=== PATIENT | female | born 1955 | race Caucasian/White ===

== ENCOUNTER → 2016-10-30 | Outpatient (CLI) | payer BC ==
--- NOTE | 2016-11-02 09:17 | MM ---
Reason for exam: screening (asymptomatic). Last mammogram was performed 6 years and 11 months ago. History: Patient is postmenopausal and had first child at age 37. Family history of premenopausal breast cancer in mother at age 37. Physical Findings: A clinical breast exam by your physician is recommended on an annual basis and results should be correlated with mammographic findings. MG 3D Screening Mammo W/Cad Bilateral CC and MLO view(s) were taken. Prior study comparison: November 18, 2009, bilateral digital screening mammogram. September 16, 2004, bilateral screening mammogram. The breast tissue is almost entirely fat. Benign calcifications. There is no discrete abnormality. No significant changes when compared with prior studies. ASSESSMENT: Benign, BI-RAD 2 RECOMMENDATION: Routine screening mammogram of both breasts in 1 year.
== END | disposition home or self-care (01) ==
LOC: RADMAMWWP 16:24
PROVIDERS: ATTEND Family Medicine
DX: Z12.31 Encounter for screening mammogram for malignant neoplasm of breast (principal)
CPT/HCPCS: 77063; G0202

== ENCOUNTER 2017-08-08 18:12 | Emergency (ER) | payer BC ==
[2017-08-08] MEDS ORDERED: MORPHINE SULFATE 2 MG/ML SYRINGE IVP STA (18:50)
[2017-08-08] MEDS ORDERED: SODIUM CHLORIDE 0.9% 500 ML IV STA (18:50)
[2017-08-08] MEDS ORDERED: ONDANSETRON 4 MG/2 ML VIAL IVP STA (18:51)
--- NOTE | 2017-08-08 18:56 | ED ---
Abdominal Pain HPI - General Chief Complaint: Abdominal Pain Stated Complaint: Constipated, not eating-cancer pt Time Seen by Provider: 08/08/17 18:32 Source: family Mode of arrival: wheelchair Limitations: no limitations - History of Present Illness Initial Comments: This is a 62-year-old female patient with a past medical history significant for diabetes mellitus type 2, morbid obesity, and recently diagnosed pancreatic cancer, pulmonary embolus, and left lower leg DVT. Patient was seen here on and admitted with pulmonary embolism, then transferred to [facility] for further evaluation when they discovered a pancreatic head mass and lesions all on her liver. Patient presents today for complaints of generalized abdominal pain and constipation. Patient states she has not had a good bowel movement for the last 5 days. States that she has not had any stool output at all for the last 3 days. She states that today she is feeling very nauseated. States that she has vomited 2-3 times. States she has vomited a couple of times throughout the last couple of days as well. She denies any hematemesis. Patient states that her abdominal pain is a full, pressure type feeling. Patient states she is diffusely tender over the abdomen. Patient denies any recent rash, fever, chills, shortness breath, chest pain, back pain, numbness, tingling, dizziness, weakness, hematuria, dysuria, urinary urgency, urinary frequency, headache, visual changes, or any other complaints. Patient denies any use of opiate pain medications. States that she has not had any significant abdominal pain related to the pancreatic cancer. - Related Data Home Medications Medication Instructions Recorded Confirmed Citalopram Hydrobromide [CeleXA] 20 mg PO DAILY 05/14/15 08/08/17 Insulin Lispro [humaLOG Kwikpen] See Protocol SQ AC-TID 07/12/17 08/08/17 Lisinopril [Zestril] 5 mg PO DAILY 07/12/17 08/08/17 Rosuvastatin [Crestor] 10 mg PO HS 07/13/17 08/08/17 Enoxaparin [Lovenox] 135 mg SQ BID 08/08/17 08/08/17 Insulin Glargine,Hum.rec.anlog 20 unit SQ HS 08/08/17 08/08/17 [Basaglar Kwikpen U-100] Ondansetron HCl [Zofran] 8 mg PO TID PRN 08/08/17 08/08/17 Polyethylene Glycol 3350 [Miralax] 17 gm PO DAILY PRN 08/08/17 08/08/17 Sennosides [Senokot] 8.6 mg PO DAILY PRN 08/08/17 08/08/17 Allergies Allergy/AdvReac Type Severity Reaction Status Date / Time No Known Allergies Allergy Verified 08/08/17 19:13 Review of Systems ROS Statement: Those systems with pertinent positive or pertinent negative responses have been documented in the HPI. ROS Other: All systems not noted in ROS Statement are negative. Past Medical History Past Medical History: Cancer, Diabetes Mellitus, Deep Vein Thrombosis (DVT), Hyperlipidemia, Hypertension, Pulmonary Embolus (PE) Additional Past Medical History / Comment(s): SLIGHT COUGH-JUST GETTING OVER COLD, pancreatic cancer History of Any Multi-Drug Resistant Organisms: None Reported Past Surgical History: Section, Cholecystectomy Additional Past Surgical History / Comment(s): 1991,JESUS 2009 Past Anesthesia/Blood Transfusion Reactions: No Reported Reaction Past Psychological History: Anxiety, Depression Smoking Status: Former smoker Past Alcohol Use History: None Reported Past Drug Use History: None Reported - Past Family History Mother Family Medical History: Cancer Additional Family Medical History / Comment(s): BREAST & LIVER- @ AGE 40 Father Family Medical History: Cancer Additional Family Medical History / Comment(s): COLON CA General Exam Limitations: no limitations General appearance: alert, in no apparent distress, other (Social well-developed , well-nourished, obese female patient in no acute distress. Vital signs upon presentation are temperature 97.7F, pulse 97, respirations 18, blood pressure 114/67, pulse ox 98% on room air.) Head exam: Present: atraumatic, normocephalic, normal inspection Eye exam: Present: normal appearance, PERRL, EOMI. Absent: scleral icterus, conjunctival injection, periorbital swelling ENT exam: Present: normal exam, normal oropharynx, mucous membranes moist Respiratory exam: Present: normal lung sounds bilaterally. Absent: respiratory distress, wheezes, rales, rhonchi, stridor Cardiovascular Exam: Present: regular rate, normal rhythm, normal heart sounds. Absent: systolic murmur, diastolic murmur, rubs, gallop, clicks GI/Abdominal exam: Present: soft, tenderness (Mild diffuse tenderness), normal bowel sounds. Absent: distended, guarding, rebound, rigid Neurological exam: Present: alert, oriented X3, CN II-XII intact Psychiatric exam: Present: normal affect, normal mood Skin exam: Present: warm, dry, intact, normal color. Absent: rash Course Vital Signs 08/08/17 08/08/17 18:26 21:10 Temperature 97.7 F Pulse Rate 97 84 Respiratory 18 16 Rate Blood Pressure 114/67 104/54 O2 Sat by Pulse 98 96 Oximetry Medical Decision Making - Medical Decision Making 62-year-old female patient recently diagnosed with pancreatic cancer with possible liver metastases presented to emergency department today for complaints of generalized abdominal pain and constipation. Physical exam did reveal some upper abdominal tenderness. KUB xray shows overall non-obstructive bowel gas pattern. Labs were reviewed and did show an elevated BUN and creatinine. Elevated AST at 135, ALT at 220, and an increased alk phos at 588. Patient's bilirubin also elevated from 1.3 on 07/13/17 to 2.7 today. Conjugated bilirubin is 0.4, unconjugated bilirubin is 0.9, and delta bilirubin is 1.4. Patient's lipase is also 899. Patient also appears to have a urinary tract infection which we will treat with Rocephin. There is concern for new obstruction patient will be transferred to [facility], Dr. Wadsworth is accepting. Patient's oncologist Dr. Dutton is at this facility and patient request to be transferred here. - Lab Data Result diagrams: 08/08/17 19:10 08/08/17 19:10 Lab Results 08/08/17 08/08/17 08/08/17 Range/Units 19:10 19:10 19:10 WBC 5.6 (3.8-10.6) k/uL RBC 5.20 (3.80-5.40) m/uL Hgb 14.9 (11.4-16.0) gm/dL Hct 45.1 (34.0-46.0) % MCV 86.7 (80.0-100.0) fL MCH 28.7 (25.0-35.0) pg MCHC 33.1 (31.0-37.0) g/dL RDW 14.4 (11.5-15.5) % Plt Count 205 (150-450) k/uL Neutrophils % 71 % Lymphocytes % 19 % Monocytes % 7 % Eosinophils % 1 % Basophils % 1 % Neutrophils # 4.0 (1.3-7.7) k/uL Lymphocytes # 1.1 (1.0-4.8) k/uL Monocytes # 0.4 (0-1.0) k/uL Eosinophils # 0.1 (0-0.7) k/uL Basophils # 0.0 (0-0.2) k/uL Sodium 135 L (137-145) mmol/L Potassium 4.2 (3.5-5.1) mmol/L Chloride 103 (98-107) mmol/L Carbon Dioxide 19 L (22-30) mmol/L Anion Gap 13 mmol/L BUN 18 H (7-17) mg/dL Creatinine 1.06 H (0.52-1.04) mg/dL Est GFR (MDRD) Af Amer >60 (>60 ml/min/1.73 sqM) Est GFR (MDRD) Non-Af 53 (>60 ml/min/1.73 sqM) Glucose 190 H (74-99) mg/dL Calcium 9.7 (8.4-10.2) mg/dL Total Bilirubin 2.6 H (0.2-1.3) mg/dL Conjugated Bilirubin (0.0-0.3) mg/dL Unconjugated Bilirubin (0.0-1.1) mg/dL Delta Bilirubin (0.0-0.2) mg/dL AST 135 H (14-36) U/L ALT 220 H (9-52) U/L Alkaline Phosphatase 588 H (38-126) U/L Total Creatine Kinase 38 (30-135) U/L CK-MB (CK-2) 1.9 (0.0-2.4) ng/mL CK-MB (CK-2) Rel Index 5.0 Troponin I 0.017 (0.000-0.034) ng/mL Total Protein 7.1 (6.3-8.2) g/dL Albumin 3.8 (3.5-5.0) g/dL Amylase 66 (30-110) U/L Lipase 899 H (23-300) U/L Urine Color Urine Appearance (Clear) Urine pH (5.0-8.0) Ur Specific [place] (1.001-1.035) Urine Protein (Negative) Urine Glucose (UA) (Negative) Urine Ketones (Negative) Urine Blood (Negative) Urine Nitrite (Negative) Urine Bilirubin (Negative) Urine Urobilinogen (<2.0) mg/dL Ur Leukocyte Esterase (Negative) Urine RBC (0-5) /hpf Urine WBC (0-5) /hpf Urine WBC Clumps (None) /hpf Ur Squamous Epith Cells (0-4) /hpf Urine Bacteria (None) /hpf Hyaline Casts (0-2) /lpf Urine Mucus (None) /hpf 08/08/17 08/08/17 Range/Units 19:10 20:42 WBC (3.8-10.6) k/uL RBC (3.80-5.40) m/uL Hgb (11.4-16.0) gm/dL Hct (34.0-46.0) % MCV (80.0-100.0) fL MCH (25.0-35.0) pg MCHC (31.0-37.0) g/dL RDW (11.5-15.5) % Plt Count (150-450) k/uL Neutrophils % % Lymphocytes % % Monocytes % % Eosinophils % % Basophils % % Neutrophils # (1.3-7.7) k/uL Lymphocytes # (1.0-4.8) k/uL Monocytes # (0-1.0) k/uL Eosinophils # (0-0.7) k/uL Basophils # (0-0.2) k/uL Sodium (137-145) mmol/L Potassium (3.5-5.1) mmol/L Chloride (98-107) mmol/L Carbon Dioxide (22-30) mmol/L Anion Gap mmol/L BUN (7-17) mg/dL Creatinine (0.52-1.04) mg/dL Est GFR (MDRD) Af Amer (>60 ml/min/1.73 sqM) Est GFR (MDRD) Non-Af (>60 ml/min/1.73 sqM) Glucose (74-99) mg/dL Calcium (8.4-10.2) mg/dL Total Bilirubin 2.7 H (0.2-1.3) mg/dL Conjugated Bilirubin 0.4 H (0.0-0.3) mg/dL Unconjugated Bilirubin 0.9 (0.0-1.1) mg/dL Delta Bilirubin 1.4 H (0.0-0.2) mg/dL AST (14-36) U/L ALT (9-52) U/L Alkaline Phosphatase (38-126) U/L Total Creatine Kinase (30-135) U/L CK-MB (CK-2) (0.0-2.4) ng/mL CK-MB (CK-2) Rel Index Troponin I (0.000-0.034) ng/mL Total Protein (6.3-8.2) g/dL Albumin (3.5-5.0) g/dL Amylase (30-110) U/L Lipase (23-300) U/L Urine Color Dark Brown Urine Appearance Cloudy H (Clear) Urine pH 5.5 (5.0-8.0) Ur Specific [place] 1.020 (1.001-1.035) Urine Protein 1+ H (Negative) Urine Glucose (UA) Negative (Negative) Urine Ketones 1+ H (Negative) Urine Blood Negative (Negative) Urine Nitrite Negative (Negative) Urine Bilirubin 1+ H (Negative) Urine Urobilinogen 12.0 (<2.0) mg/dL Ur Leukocyte Esterase Large H (Negative) Urine RBC 2 (0-5) /hpf Urine WBC 94 H (0-5) /hpf Urine WBC Clumps Occasional H (None) /hpf Ur Squamous Epith Cells 2 (0-4) /hpf Urine Bacteria Rare H (None) /hpf Hyaline Casts 16 H (0-2) /lpf Urine Mucus Occasional H (None) /hpf - Radiology Data Radiology results: report reviewed, image reviewed KUB x-ray of the abdomen shows normal bowel gas pattern, psoas margins are normal, no organomegaly is present, surgical clips from cholecystectomy are present, impression by Dr. Ricci is an unremarkable abdomen. Disposition Clinical Impression: Biliary obstruction, Abdominal pain Disposition: OTHER INSTITUTION NOT DEFINED Condition: Serious Referrals: Mateus Sol DO [Primary Care Provider] - 1-2 days - Out of Hospital Transfer - Req. Specs Out of Hospital Transfer - Requested Specifics: Other Emergency Center ( [facility])
[2017-08-08 19:28] LABS: Basophils % (A) 1 %; CHCM 34.8; Eosinophils # (A) 0.1 k/uL (0-0.7); Eosinophils % (A) 1 %; HCT 45.1 % (34.0-46.0); HDW 3.14; HGB 14.9 gm/dL (11.4-16.0); Luc # (Auto) 0.06; Luc % (Auto) 1; Lymphocytes # (A) 1.1 k/uL (1.0-4.8); Lymphocytes % (A) 19 %; MCH 28.7 pg (25.0-35.0); MCHC 33.1 g/dL (31.0-37.0); MCV 86.7 fL (80.0-100.0); Mean Platelet Volume 7.9; Monocytes # (A) 0.4 k/uL (0-1.0); Monocytes % (A) 7 %; Neutrophils % (A) 71 %; RDW 14.4 % (11.5-15.5); WBC 5.6 k/uL (3.8-10.6); WBC (Perox) 5.22
[2017-08-08 19:48] LABS: ALT 220 U/L (9-52); AST 135 U/L (14-36); Alkaline Phosphatase 588 U/L (38-126); Amylase 66 U/L (30-110); Anion Gap 13 mmol/L; Blood Urea Nitrogen 18 mg/dL (7-17); Calcium 9.7 mg/dL (8.4-10.2); Carbon Dioxide 19 mmol/L (22-30); Chloride 103 mmol/L (98-107); Glucose 190 mg/dL (74-99); Non-African American GFR(MDRD) 53 (>60 ml/min/1.73 sqM); Potassium 4.2 mmol/L (3.5-5.1); Sodium 135 mmol/L (137-145); Total Bilirubin 2.6 mg/dL (0.2-1.3); Total Protein 7.1 g/dL (6.3-8.2)
--- NOTE | 2017-08-08 20:43 | XR ---
EXAMINATION TYPE: XR KUB DATE OF EXAM: 08/08/2017 COMPARISON: 03/06/2010 INDICATION: Abdomen pain TECHNIQUE: Single view abdomen upright view FINDINGS: There is a normal bowel gas pattern. Psoas margins are normal. No organomegaly is present. Surgical clips from a cholecystectomy are present. IMPRESSION: 1. Unremarkable Abdomen
[2017-08-08 20:46] LABS: Creatine Kinase MB 1.9 ng/mL (0.0-2.4); Troponin I 0.017 ng/mL (0.000-0.034)
[2017-08-08 21:02] LABS: Appearance,Urine Cloudy (Clear); Bacteria,Urine Rare /hpf; Bilirubin,Urine 1+ (Negative); Glucose,Urine (UA) Negative (Negative); Ketones,Urine 1+ (Negative); Leukocyte Esterase,Urine Large (Negative); Mucus,Urine Occasional /hpf; Nitrite,Urine Negative (Negative); PH, Urine 5.5 (5.0-8.0); Particle Count 9561; Protein,Urine 1+ (Negative); RBC,Urine 2 /hpf (0-5); Squamous Epithelial Cell,Urine 2 /hpf (0-4); UA Billing (MACRO vs. MICRO) MICRO; WBC,Urine 94 /hpf (0-5)
[2017-08-08 21:48] LABS: Bilirubin, Delta 1.4 mg/dL (0.0-0.2); Total Bilirubin 2.7 mg/dL (0.2-1.3)
[2017-08-08] MEDS ORDERED: cefTRIAXone IN SWFI 1,000 MG/10 ML SYRINGE IVP STA (21:48)
[2017-08-08] MEDS ORDERED: SODIUM CHLORIDE 0.9% 1,000 ML IV SCH (22:00)
[2017-08-08] MEDS ORDERED: MORPHINE SULFATE 10 MG/ML SYRINGE IVP STA (22:11)
[2017-08-08] MEDS ORDERED: ENOXAPARIN 150 MG/ML SYRINGE SQ STA (22:11)
[2017-08-08 22:32] VITALS: BP 147/72; PULSE 84; RESP 18; TEMP 98.6
== END 2017-08-08 22:50 | disposition other institution (70) ==
LOC: EC 18:12
DX: K83.1 Obstruction of bile duct (principal); E11.9 Type 2 diabetes mellitus without complications; E78.5 Hyperlipidemia, unspecified; I10 Essential (primary) hypertension; F32.9 Major depressive disorder, single episode, unspecified; F41.9 Anxiety disorder, unspecified; Z85.07 Personal history of malignant neoplasm of pancreas; Z86.718 Personal history of other venous thrombosis and embolism; Z79.01 Long term (current) use of anticoagulants; Z79.4 Long term (current) use of insulin; Z79.899 Other long term (current) drug therapy; Z90.49 Acquired absence of other specified parts of digestive tract; E66.01 Morbid (severe) obesity due to excess calories; Z68.42 Body mass index [BMI] 45.0-49.9, adult
CPT/HCPCS: 36415; 93005; 80053; 82150; 82248; 82550; 82553; 83690; 84484; 85025; 81001; 74000; 99285; 96374; 96375 ×2; 96376; 96361 ×4; 96372; J2270 ×2; J2405; J0696; J1650

== ENCOUNTER → 2017-08-17 | Outpatient (CLI) | payer BC ==
--- NOTE | 2017-08-17 15:39 | US ---
EXAMINATION TYPE: US liver DATE OF EXAM: 08/17/2017 COMPARISON: NONE CLINICAL HISTORY: 62-year-old female R94.5 ABN LIVER FUNCTIONS. Jaundice; Pancreatic CA with liver me tastasis; CBD stent inserted last week at [facility] TECHNIQUE: Multiple sonographic images of the right upper quadrant are obtained. FINDINGS: Liver Length: 15.9 cm Gallbladder wall: surgically removed CBD: 1.4 cm Right Kidney: 10.9 x 6.3 x 5.2 cm Pancreas: Limited visualization of the pancreatic head and tail. The main pancreatic duct is seen mi ldly dilated at 3.6 mm. Liver: multiple hepatic hypoechoic lesions; largest right lobe mass = 2.9 x 2.4 x 2.4cm. Small amoun t of perihepatic ascites. Suspect underlying pneumobilia. Gallbladder: surgically absent. CBD: Echogenic central structure is noted likely corresponding to the patient's bile duct stent. The duct is difficult to assess but appears dilated at 1.4 cm. Right Kidney: No hydronephrosis. IMPRESSION: 1. Echogenic structure along the bile duct likely the patient's biliary stent. Suspect pneumobilia in the liver. The bile duct is difficult to assess because of the stent but appears dilated at 1.4 cm. 2. Mild dilatation of the main pancreatic duct at 3.6 mm seems to be increased as compared to 017. 3. Numerous hepatic metastases and mild perihepatic ascites.
== END | disposition home or self-care (01) ==
LOC: RADUSWWP 13:06
PROVIDERS: ATTEND Internal Medicine Hematology & Oncology
DX: C78.7 Secondary malignant neoplasm of liver and intrahepatic bile duct (principal); C25.0 Malignant neoplasm of head of pancreas; R18.8 Other ascites
CPT/HCPCS: 76705

== ENCOUNTER → 2017-08-18 | Outpatient (CLI) | payer BC ==
[2017-08-18 16:08] LABS: ALT 184 U/L (9-52); Alkaline Phosphatase 1176 U/L (38-126); Anion Gap 13 mmol/L; Blood Urea Nitrogen 14 mg/dL (7-17); Calcium 9.6 mg/dL (8.4-10.2); Carbon Dioxide 24 mmol/L (22-30); Chloride 98 mmol/L (98-107); Glucose 125 mg/dL (74-99); Non-African American GFR(MDRD) >60 (>60 ml/min/1.73 sqM); Potassium 3.3 mmol/L (3.5-5.1); Sodium 135 mmol/L (137-145); Total Bilirubin 14.3 mg/dL (0.2-1.3)
[2017-08-18 16:21] LABS: AST 198 U/L (14-36)
--- NOTE | 2017-08-18 16:46 | CT ---
EXAMINATION TYPE: CT abdomen w con DATE OF EXAM: 08/18/2017 COMPARISON: 07/14/2017 HISTORY: Vomiting and jaundice x1 month. CT DLP: 1656 mGycm Automated exposure control for dose reduction was used. TECHNIQUE: Helical acquisition of images was performed from the lung bases through the top of iliac crest to include entire abdomen. CONTRAST: Performed with Oral Contrast and with IV Contrast, patient injected with 100 mL of Omnipaque 300. FINDINGS: There are numerous variable sized hypodense liver masses. These measure up to 3 cm. There is some air in the biliary tree. Bile ducts are not dilated. There are clips from cholecystectomy. There is a st ent in the common bile duct. Stomach has normal size. Spleen shows no focal defect. There is no adrenal mass. Kidneys show satisfactory contrast opacification. There is no hydronephrosi s. There is a 2 cm low-density area on the anterior right kidney that could be a complex cyst. There is no ascites. There is a 3 cm low-density area in the head of the pancreas inferiorly. I see no foca l bony destructive process. IMPRESSION: MULTIPLE LIVER MASSES CONSISTENT WITH METASTATIC DISEASE. THESE ARE INCREASED IN SIZE COMPARED TO LAS T CT SCAN. 3 CM LOW-DENSITY MASS IN THE INFERIOR PANCREATIC HEAD SUGGESTIVE OF TUMOR THAT IS LARGER T [place]MAN[place]AR LAST CT SCAN. STABLE EXOPHYTIC 2 CM DENSITY ON THE ANTERIOR RIGHT KIDNEY IS PROBABLY A COMPLEX CYST.
== END | disposition home or self-care (01) ==
LOC: RADCTMAIN 14:22
PROVIDERS: ATTEND Internal Medicine Hematology & Oncology
DX: C25.0 Malignant neoplasm of head of pancreas (principal); R16.0 Hepatomegaly, not elsewhere classified; N28.89 Other specified disorders of kidney and ureter; I80.10 Phlebitis and thrombophlebitis of unspecified femoral vein; I26.99 Other pulmonary embolism without acute cor pulmonale; E11.9 Type 2 diabetes mellitus without complications
CPT/HCPCS: 80053; 74160; 36415; Q9967